=== PATIENT | male | born 1965 | race Two or more races ===

== ENCOUNTER 2024-05-05 15:22 | Inpatient (IN) | payer MEDICAID, SELFPAY ==
[2024-05-05 15:22] VITALS: PULSE 60
--- NOTE | 2024-05-05 15:23 | PC.NURSE ---
pt brought in by ems from [facility] for altered mental status. per ems pt was seen by staff to have seizure like activity and fall to floor. pt then became unresponsive. medical staff from nursing home responded and began assisting ventilations. pt had pulse but was gcs of 3. pt received 1mg narcan in route with no response. pt was being bagged on arrival with gcs of 3. rt at bedside. dr smith at bedside
[2024-05-05 15:26] VITALS: BP 176/87; PULSE 52; RESP 18; O2SAT 100
[2024-05-05] MEDS: NALOXONE INJ 0.4 MG/ML VIAL 1 MG IV (15:31)
--- NOTE | 2024-05-05 15:33 | PC.NURSE ---
pt began responding more at this time. pt talking but is not speaking clearly. pt is breathing on his own at this time. dr smith assessing pt
[2024-05-05 15:41] VITALS: BP 146/83; PULSE 62; RESP 20; O2SAT 100
--- NOTE | 2024-05-05 15:46 | XR_ITS ---
Examination: CT maxillofacial, without intravenous contrast. 2-D sagittal reconstructions. 3-D reconstructions. Date and time of exam:May 05, 2024 1608 hrs. Indications: Patient fell today with injury to the face, facial pain CTDI: vol (mGy):18.7 DLP: (mGycm):334 Technique: Multiple axial images of maxillofacial region, 3.0 mm slice thickness. 2-D sagittal and coronal reconstructions. 3-D reconstructions. Low dose protocols were performed. One or more of the following dose reduction techniques were used; automated exposure control, adjustment of the mA and/or KV according to patient size, use of iterative reconstruction technique. Findings: Frontal bone frontal sinuses intact No nasal bone fracture Orbital rims intact No depression zygomatic arches Pterygoid plates maxilla intact No mandible fracture Impression: No acute facial fracture No opaque foreign body.
--- NOTE | 2024-05-05 15:46 | EKG_ITS ---
[facility] Test Date: 2024-05-05 Pat Name: RELL RUSSO Department: Room: - Gender: Male Refuse Laborer: : 1965 Requested By: Willie Gunn Order Number: [id number] Reading MD: Willie Gunn Measurements Intervals Ideal Rate: 55 P: 58 MD: 161 QRS: -13 QRSD: 91 T: 53 QT: 414 QTc: 398 Interpretive Statements SINUS BRADYCARDIA No previous ECG available for comparison /store/S0/[id number]/ecg/[id number].pdf
--- NOTE | 2024-05-05 15:46 | XR_ITS ---
Examination: CT lumbar spine, without contrast. 2-D sagittal reconstructions. 2-D coronal reconstructions. 3-D reconstructions. Date and time of exam:May 05, 2024 1612 hrs. Indications: Patient fell today with injury to lower back, lower back pain CTDI: vol (mGy):37.6 DLP: (mGycm):1036 Technique: Multiple 1.25 mm axial sections of the lumbar spine without intravenous contrast have been obtained. 2-D sagittal and coronal reconstructions have been obtained. 3-D reconstructions have been obtained. Low dose protocols were performed. One or more of the following dose reduction techniques were used; automated exposure control, adjustment of the mA and/or KV according to patient size, use of iterative reconstruction technique. Findings: Adequate alignment lumbar vertebral bodies on the lateral view No lumbar vertebral body compression fracture Lumbar pedicles laminated transverse and posterior spinous processes intact L5-S1 3 mm central lumbar disc bulge L4-L5 no disc protrusion L3-L4 3 mm central lumbar disc bulge Cholelithiasis Impression: No acute lumbar fracture
--- NOTE | 2024-05-05 15:46 | XR_ITS ---
Examination: CT brain head without contrast. 2-D sagittal coronal reconstructions Date and time of exam: May 05, 2024 1408 hrs. Indications: Altered mental status today with loss of consciousness episode followed by headache CTDI: vol (mGy):52.3 DLP: (mGycm):1051 Technique: Multiple CT axial sections of the brain have been obtained, 5 mm slice thickness. Contrast has not been administered. 2-D sagittal, coronal reconstructions have been obtained Low dose protocols were performed. One or more of the following dose reduction techniques were used; automated exposure control, adjustment of the mA and/or KV according to patient size, use of iterative reconstruction technique. Findings: No significant ventricular enlargement. Intra-axial or extra-axial hemorrhage density is not seen. No mass effect or midline shift Basal cisterns are not remarkable. Fourth ventricle is midline. Cranial vault intact. Impression: Negative for acute hemorrhage, mass effect or midline shift
--- NOTE | 2024-05-05 15:46 | XR_ITS ---
Examination: CT cervical spine without contrast 2-D sagittal reconstructions 2-D coronal reconstructions 3-D reconstructions. Exam date and time:May 05, 2024 1608 hrs. Indications: Patient fell today with injury to the neck, neck pain CTDI:vol (mGy) 13.4 DLP: (mGycm) 268 Technique: Multiple 2 mm axial sections of the cervical spine have been obtained. The coronal and sagittal reconstructions have been obtained. 3-D reconstructions have been obtained. Low dose protocols were performed. One or more of the following dose reduction techniques were used; automated exposure control, adjustment of the mA and/or KV according to patient size, use of iterative reconstruction technique. Findings: Axial sections demonstrate intact base of the skull. C1 exhibit satisfactory relationship to the odontoid. No acute cervical vertebral body fracture seen. Alignment posterior spinous processes satisfactory. Impression: No acute cervical fracture.
[2024-05-05 16:00] VITALS: BMI 21.5
--- NOTE | 2024-05-05 16:04 | PC.NURSE ---
pt to ct
[2024-05-05 16:13] LABS: Basophils % (Auto) 0 % (0-2.5); Eosinophils # (Auto) 0.1 Thou/mm3 (0.0-0.5); Eosinophils % (Auto) 1 % (0-10); Hematocrit 43.9 % (41.0-53.0); Hemoglobin 14.5 g/dL (13.5-16.0); Immature Granulocytes % (Auto) 0 % (0-0); Immature Granulocytes Auto 0.02 Thou/mm3 (0.00-0.00); Lymphocytes # (Auto) 1.8 Thou/mm3 (1.0-4.8); Lymphocytes % (Auto) 19 % (10-50); Mean Corpuscular Hemoglobin 28.5 pg (25.0-35.0); Mean Corpuscular Volume 86 fL (80-100); Monocytes # (Auto) 0.6 Thou/mm3 (0.0-0.8); Monocytes % (Auto) 6 % (0-12); Neutrophils # (Auto) 6.7 Thou/mm3 (1.8-7.7); Neutrophils % (Auto) 73 % (37-80); Nucleated Red Blood Cell % 0 /100 WBC (0); Platelet Count 263 Thou/mm3 (140-440); RDW Standard Deviation 39.4 fL (35.1-43.9); Red Blood Count 5.09 Miln/mm3 (4.50-5.90); White Blood Count 9.2 Thou/mm3 (3.8-10.6)
--- NOTE | 2024-05-05 16:14 | PC.NURSE ---
pt taken to CT.
[2024-05-05 16:17] LABS: Amphetamine/Methamp Scrn,U Negative (Negative); Barbiturate Screen,Urine Negative (Negative); Benzodiazepines Screen,Urine Negative (Negative); Benzoylecgonine Screen, Ur Negative (Negative); Fentanyl Screen,Urine Negative (Negative); Opiate Screen,Urine Negative (Negative); THC Screen,Urine Negative (Negative)
[2024-05-05] MEDS: SODIUM CHLORIDE 0.9% 1000 ML 1,000 ML 500 ML IV (16:36)
[2024-05-05 16:42] LABS: Alanine Aminotransferase 8 U/L (10-49); Albumin, Serum 4.2 gm/dL (3.5-5.0); Albumin/Globulin Ratio 1.8 (1.2-2.2); Alcohol, Blood Medical < 10.0 mg/dL (0-10.0); Alkaline Phosphatase 110 U/L (46-116); Anion Gap 7 (7-16); Aspartate Amino Transferase < 10 U/L (0-34); BUN/Creatinine Ratio 14 Ratio (12-20); Bilirubin,Total 0.2 mg/dL (0.3-1.2); Blood Urea Nitrogen 11 mg/dL (9-23); Calcium 9.8 mg/dL (8.3-10.6); Calcium (Corrected) 9.8 mg/dL (8.5-10.1); Carbon Dioxide 29.4 mMol/L (20.0-31.0); Chloride 100 mMol/L (98-107); Creatinine (Component) 0.8 mg/dL (0.6-1.3); Estimated Creatinine Clearance 94.3 mL/min (>60); Globulin 2.4 gm/dL (2.3-3.5); Glucose 127 mg/dL (74-106); Osmolality,Calculated 273 (275-295); Potassium 3.9 mMol/L (3.4-5.1); Sodium 136 mMol/L (136-145); Total Protein 6.6 gm/dL (5.7-8.2); Troponin I < 0.020 ng/mL (0.0-0.045); eGFR > 60 See Note
--- NOTE | 2024-05-05 17:00 | PC.NURSE ---
call from [facility] with [facility], per [facility] pt sent over for being unresponsive and apneic. [facility] worker witnessed pt pass out through small window so unknown if any head trauma. pt was found laying on the ground saying get the nurse. when [facility] arrived pt started having seizure like activity, convulsing and making gaging sounds. [facility] pts O2 sats were as low as 77. BS was 103. OPA and 18g IV was placed.
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
[2024-05-05 18:28] VITALS: BP 167/82; PULSE 50; RESP 18; TEMP 37; O2SAT 100
[2024-05-05 18:43] LABS: Creatine Kinase 32 U/L (34-171)
[2024-05-05 19:45] VITALS: BP 152/85; PULSE 50; RESP 16; O2SAT 100
[2024-05-05] MEDS: levETIRAcetam INJ 100 MG/ML VIAL 5ML 1000 MG IVP (20:01)
[2024-05-05 20:20] VITALS: BMI 23.5
[2024-05-05] MEDS: HEPARIN SOD INJ 5000 UNIT/ML VIAL SC (21:24)
--- NOTE | 2024-05-05 21:24 | PD.VCONSULT1 ---
Telemedicine visit statement This visit was conducted with the use of interactive audio and video telecommunications system that permits real time communication between the patient and the provider. Patient's verbal consent for virtual visit was obtained on 05/05/24 at 2124. Meds Home Medications and Allergies Home Medications ?Medication ?Instructions ?Recorded ?Confirmed ?Type No Known Home Medications 05/05/24 05/05/24 History Allergies Allergy/AdvReac Type Severity Reaction Status Date / Time No Known Allergies Allergy Verified 05/05/24 15:59 Virtual exam Vital Signs Temp Pulse Resp BP Pulse Ox O2 Del Method 98.6 F 50 L 16 152/85 H 100 Room Air 05/05/24 18:28 05/05/24 19:45 05/05/24 19:45 05/05/24 19:45 05/05/24 19:45 05/05/24 19:45 Results Labs 05/05/24 16:00 05/05/24 16:00 Labs: Short CBC 05/05/24 Range/Units 16:00 WBC 9.2 (3.8-10.6) Thou/mm3 Hgb 14.5 (13.5-16.0) g/dL Hct 43.9 (41.0-53.0) % Plt Count 263 (140-440) Thou/mm3 BMP 05/05/24 16:00 Sodium 136 Potassium 3.9 Chloride 100 Carbon Dioxide 29.4 BUN 11 Creatinine 0.8 Glucose 127 H Calcium 9.8 Cardiac Enzymes 05/05/24 Range/Units 16:00 Total Creatine Kinase 32 L (34-171) U/L Troponin I < 0.020 (0.0-0.045) ng/mL Liver Function 05/05/24 Range/Units 16:00 Total Bilirubin 0.2 L (0.3-1.2) mg/dL AST < 10 (0-34) U/L ALT 8 L (10-49) U/L Alkaline Phosphatase 110 (46-116) U/L Albumin 4.2 (3.5-5.0) gm/dL
--- NOTE | 2024-05-05 22:33 | PC.NURSE ---
called Dr. Sanabria regarding patient's down HR to 42. Patient is asymptomatic, no new orders received.
[2024-05-06] VITALS (11 sets, daily range): BP systolic 118–152; BP diastolic 69–81; PULSE 45–56; RESP 13–23; TEMP 36.1–36.6; O2SAT 94–100
[2024-05-06 06:19] LABS: Basophils % (Auto) 0 % (0-2.5); Eosinophils # (Auto) 0.1 Thou/mm3 (0.0-0.5); Eosinophils % (Auto) 1 % (0-10); Hematocrit 40.4 % (41.0-53.0); Hemoglobin 12.9 g/dL (13.5-16.0); Immature Granulocytes % (Auto) 0 % (0-0); Immature Granulocytes Auto 0.02 Thou/mm3 (0.00-0.00); Lymphocytes # (Auto) 1.2 Thou/mm3 (1.0-4.8); Lymphocytes % (Auto) 19 % (10-50); Mean Corpuscular HGB Conc 31.9 g/dl (31.0-37.0); Mean Corpuscular Hemoglobin 28.6 pg (25.0-35.0); Mean Corpuscular Volume 90 fL (80-100); Monocytes # (Auto) 0.5 Thou/mm3 (0.0-0.8); Monocytes % (Auto) 7 % (0-12); Neutrophils # (Auto) 4.7 Thou/mm3 (1.8-7.7); Neutrophils % (Auto) 72 % (37-80); Nucleated Red Blood Cell % 0 /100 WBC (0); Platelet Count 259 Thou/mm3 (140-440); Red Blood Count 4.51 Miln/mm3 (4.50-5.90); White Blood Count 6.4 Thou/mm3 (3.8-10.6)
[2024-05-06 06:25] LABS: Anion Gap 6 (7-16); BUN/Creatinine Ratio 14 Ratio (12-20); Blood Urea Nitrogen 11 mg/dL (9-23); Calcium 8.9 mg/dL (8.3-10.6); Carbon Dioxide 28.1 mMol/L (20.0-31.0); Chloride 104 mMol/L (98-107); Creatinine (Component) 0.8 mg/dL (0.6-1.3); Estimated Creatinine Clearance 100.6 mL/min (>60); Glucose 100 mg/dL (74-106); Magnesium 1.9 mg/dL (1.6-2.6); Osmolality,Calculated 275 (275-295); Potassium 3.8 mMol/L (3.4-5.1); Sodium 138 mMol/L (136-145); Thyroid Stimulating Hormone 1.33 uIU/mL (0.55-4.78); eGFR > 60 See Note
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
[2024-05-06] MEDS: HEPARIN SOD INJ 5000 UNIT/ML VIAL SC ×2 (09:16→20:26)
--- NOTE | 2024-05-06 13:51 | PC.SS ---
Rounding: Pending neuro and cardio reccs
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
[2024-05-06] MEDS: ACETAMINOPHEN 325 MG TABLET 650 MG PO (20:31)
[2024-05-07] VITALS (9 sets, daily range): BP systolic 103–141; BP diastolic 63–77; PULSE 43–61; RESP 14–18; TEMP 36.1–36.9; O2SAT 97–99; BMI 23.6
--- NOTE | 2024-05-07 02:56 | EKG_ITS ---
[facility] Test Date: 2024-05-07 Pat Name: RELL RUSSO [facility] Gender: Male Living Coach: LEONEL : 1965 Requested By: Neo Sanabria Order Number: [id number] Reading MD: Neo Sanabria Measurements Intervals [place] Rate: 48 P: 56 MN: 157 QRS: -14 QRSD: 103 T: 71 QT: 441 QTc: 395 Interpretive Statements SINUS BRADYCARDIA Compared to ECG 05/05/2024 16:43:52 No significant changes /store/S0/[id number]/[id number].pdf
[2024-05-07] MEDS: LORazepam 2 MG/ML VIAL 1 MG IVP (03:10)
--- NOTE | 2024-05-07 03:13 | PC.RT ---
Responded to SPA SUPERVISOR pt on RA spo2 98% RR19, hr 48, EKG done RT dc at 03:12.
[2024-05-07 03:14] LABS: Basophils % (Auto) 0 % (0-2.5); Eosinophils # (Auto) 0.1 Thou/mm3 (0.0-0.5); Eosinophils % (Auto) 2 % (0-10); Hematocrit 43.2 % (41.0-53.0); Hemoglobin 13.8 g/dL (13.5-16.0); Immature Granulocytes % (Auto) 0 % (0-0); Immature Granulocytes Auto 0.02 Thou/mm3 (0.00-0.00); Lymphocytes # (Auto) 1.5 Thou/mm3 (1.0-4.8); Lymphocytes % (Auto) 20 % (10-50); Mean Corpuscular HGB Conc 31.9 g/dl (31.0-37.0); Mean Corpuscular Hemoglobin 28.4 pg (25.0-35.0); Mean Corpuscular Volume 89 fL (80-100); Monocytes # (Auto) 0.5 Thou/mm3 (0.0-0.8); Monocytes % (Auto) 7 % (0-12); Neutrophils # (Auto) 5.2 Thou/mm3 (1.8-7.7); Neutrophils % (Auto) 71 % (37-80); Nucleated Red Blood Cell % 0 /100 WBC (0); Platelet Count 338 Thou/mm3 (140-440); RDW Standard Deviation 40.7 fL (35.1-43.9); Red Blood Count 4.86 Miln/mm3 (4.50-5.90); White Blood Count 7.4 Thou/mm3 (3.8-10.6)
--- NOTE | 2024-05-07 03:28 | PD.RESEVENT ---
Documentation for date of: 05/07/24 Event Note Event Note: Rapid response was called around 2:45AM for possible seizure episode while in the hypercapnic phase of EEG. Patient was reported to be seen snoring, gagging, and vomiting, and less responsive. Patient's BP at the time was 187/79, with HR of 49, O2 sat 98% on RA. Patient was arousable to name and sternal rub, and able to open his eyes, and reactive to light. Patient was complaining of chest pain, and very tender to touch. BP later improved to 153/84, with HR of 51, and FS 106. Repeat EKG was taken, and showed no ST-T changes from last EKG taken in the ED. No signs of incontinence or tongue biting noticed/witnessed. Patient's last antiepileptic was given in the ED, 1g Keppra on 05/05/24. D/t low HR, will give Ativan 1mg x 1, and continue to monitor for any seizure like activity. In addition, will order CK along with morning labs. Patient's care and plan discussed with my attending, Dr. Wagner. Sandra Barrios, PGY-2
[2024-05-07 03:38] LABS: Alanine Aminotransferase 9 U/L (10-49); Albumin, Serum 3.9 gm/dL (3.5-5.0); Albumin/Globulin Ratio 1.6 (1.2-2.2); Alkaline Phosphatase 106 U/L (46-116); Anion Gap 8 (7-16); Aspartate Amino Transferase 13 U/L (0-34); BUN/Creatinine Ratio 15 Ratio (12-20); Bilirubin,Total 0.2 mg/dL (0.3-1.2); Blood Urea Nitrogen 12 mg/dL (9-23); Calcium 9.8 mg/dL (8.3-10.6); Calcium (Corrected) 9.9 mg/dL (8.5-10.1); Carbon Dioxide 27.9 mMol/L (20.0-31.0); Chloride 102 mMol/L (98-107); Creatine Kinase 47 U/L (34-171); Creatinine (Component) 0.8 mg/dL (0.6-1.3); Estimated Creatinine Clearance 100.6 mL/min (>60); Globulin 2.4 gm/dL (2.3-3.5); Glucose 100 mg/dL (74-106); Osmolality,Calculated 275 (275-295); Phosphorous 4.4 mg/dL (2.4-5.1); Potassium 3.9 mMol/L (3.4-5.1); Sodium 138 mMol/L (136-145); Total Protein 6.3 gm/dL (5.7-8.2); eGFR > 60 See Note
--- NOTE | 2024-05-07 03:45 | PC.NURSE ---
Accessed pt's chart/MAR to give ativan to pt helping main RN
--- NOTE | 2024-05-07 04:55 | RESP.EEG ---
EEG captured and ready to be read
[2024-05-07] MEDS: HEPARIN SOD INJ 5000 UNIT/ML VIAL SC ×2 (09:15→21:33)
--- NOTE | 2024-05-07 09:31 | PC.SS ---
SS met with patient Laz Abernathy is a 58 Year old male admitted for New onset Seizures. SS met with patient at bedside. Patient is from [facility]. Patient is able to ambulate and able to complete all ADL's. Patient does not utilize any source of DME to assist with ambulation. Patient reports he does not have any decision makers and reports he is his own decision maker. At time of discharge patient will return back to [facility], officer at bedside will transport patient.
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
[2024-05-07] MEDS: levETIRAcetam 250 MG TABLET 1000 MG PO ×2 (12:01→21:33)
--- NOTE | 2024-05-07 23:22 | ESPR_ITS ---
Documentation for date of: 05/07/24 Subjective Subjective Interval history: Patient is in [facility], no seizures in the last 12 hours. No complaints or side effects on Keppra Exam - Neurology Vital Signs Temp Pulse Resp BP Pulse Ox O2 Del Method 98 F 57 L 18 136/76 H 97 CPAP 05/07/24 20:00 05/07/24 20:00 05/07/24 20:00 05/07/24 20:00 05/07/24 20:00 05/07/24 20:00 Narrative Exam GENERAL APPEARANCE: Well hydrated, well-nourished in no acute distress. HEENT: Normocephalic, atraumatic, extraocular movements intact. Pupils: Equal reacting to light NECK: Supple, no JVD or bruits. CARDIOVASULAR: Heart: S1, S2 heard, regular without S3-S4 or murmur no rubs or gallops. LUNGS/CHEST: Clear to auscultation bilaterally. No rails, rhonchi, or wheezing. Normal inspection. ABDOMEN: Soft, nontender, with normal bowel sounds. No pulsatile masses. No rebound, rigidity, or guarding. Normal inspection and palpation. EXTREMITIES: Normal inspection and palpation. No edema, clubbing or cyanosis. SKIN: Warm and dry without rashes. Normal inspection. MUSCULOSKELETAL: No cervical, thoracic, lumbar or midline bony tenderness. Normal inspection. NEURO: Alert, awake and oriented x3. Cranial nerves: II through XII grossly intact. Speech and language: Normal with no dysarthria or dysphasia. Motor system: Tone and bulk: Normal: Strength: 5 out of 5 in all 4 extremities; No pronator drift noted. Deep tendon reflexes: 2+ bilaterally symmetrical. Plantar reflex: Downgoing bilaterally. Sensory system: Intact to all modalities of sensation bilaterally. Coordination: Intact to [id number]-jzhb-[id number] and [id number] test bilaterally. No ataxia, no dysmetria, or dysdiadochokinesia noted. No intention tremors noted. Gait: Not tested. No signs of meningeal irritation noted. PSYCHIATRIC: Normal mood and affect. Objective Labs 05/08/24 04:50 05/08/24 04:50 Labs: Laboratory Results - last 24 hr 05/07/24 02:56 WBC 7.4 RBC 4.86 Hgb 13.8 Hct 43.2 MCV 89 MCH 28.4 MCHC 31.9 RDW Std Deviation 40.7 Plt Count 338 D Neut % (Auto) 71 Lymph % (Auto) 20 [place] % (Auto) 7 Eos % (Auto) 2 Baso % (Auto) 0 Neut # (Auto) 5.2 Lymph # (Auto) 1.5 [place] # (Auto) 0.5 Eos # (Auto) 0.1 Baso # (Auto) 0.0 Immature Gran # (Auto) 0.02 H Absolute Nucleated RBC 0.00 Immature Gran % 0 Nucleated RBC % 0 Sodium 138 Potassium 3.9 Chloride 102 Carbon Dioxide 27.9 Anion Gap 8 BUN 12 Creatinine 0.8 Estim Creat Clear Calc 100.6 eGFR > 60 BUN/Creatinine Ratio 15 Glucose 100 Calculated Osmolality 275 Calcium 9.8 Corrected Calcium 9.9 Phosphorus 4.4 Magnesium 2.0 Total Bilirubin 0.2 L AST 13 ALT 9 L Alkaline Phosphatase 106 Total Creatine Kinase 47 Total Protein 6.3 Albumin 3.9 Globulin 2.4 Albumin/Globulin Ratio 1.6 Assessment & Plan Assessment and plan (1) New onset seizure: Status: Acute Assessment and plan: Reportedly had witnessed a seizure in the facility and in the hospital after admission this morning. Was given Ativan 1 mg and loaded with Keppra 1000 mg and continued on 1000 mg twice a day. EEG showed normal study but it does not rule out the diagnosis of seizures. Continue with the Keppra. Would need video recording of the episode if possible to characterize the seizure and the repeat EEG to decide about the duration of AED therapy as an outpatient. Follow-up with MRI brain with and without contrast as it becomes available..
[2024-05-08] VITALS: BP 111/61; PULSE 52; PULSE 56; RESP 17; TEMP 36.4; O2SAT 94
--- NOTE | 2024-05-08 | XR_ITS ---
Examination: MRI of brain without intravenous contrast. MRI brain with intravenous contrast. Date and time of exam:May 08, 2024 1719 hrs. Indications: First time seizure May 05, 2024 Technique: Multiple axial and sagittal images of the brain to been obtained. Siemens high-resolution 1.52 Nina short bore scanner utilized. Sagittal sections, T1 weighted images, TR 500, TE 14, are performed. Axial sections proton-density and T2-weighted images have been obtained. Inversion recovery axial images, TR 9260, TE 111, TR 2500. Diffusion weighted images, axial sections, TR 4800, TE 128, B value 1000. Axial sections, ADC map, TR 4800, TE 128. Axial and coronal images were also obtained post 14 cc gadolinium administered intravenously. Findings:: Enlargement of the sella turcica is not present. The optic chiasm and infundibular stalk are not remarkable. There is no localized enlargement of the medulla or jazmine. Fourth ventricle and cerebellar tonsils appear normal in position. No subacute area of hemorrhage density is seen. Fourth ventricle is midline. Mass in the cerebellopontine angle region is not evident. 7th and 8th nerve complexes exhibit symmetry Globes are symmetrical Orbital musculature including medial lateral rectus muscles do not exhibit abnormality Increased white matter signal is evident, punctate foci increased signal in the bilateral frontal white matter, for instance FLAIR images 21 and 22 and left temporal white matter right occipital white matter FLAIR image 16 Effacement of the cortical sulcal markings is not identified. Mass effect upon the ventricular system is not identified. Diffusion-weighted images demonstrate no focus of restricted diffusion Contrast images demonstrate no abnormal enhancement Impression: Punctate foci increased signal in the cerebral white matter, demyelinating disease pattern
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
[2024-05-08] MEDS: HALOPERIDOL LACT INJ 5 MG/ML VIAL IM (01:14)
[2024-05-08] MEDS: DiphenhydrAMINE INJ 50 MG/ML VIAL 25 MG IM (01:14)
[2024-05-08 04:00] VITALS: BP 120/66; PULSE 53; PULSE 60; RESP 13; TEMP 36.2; O2SAT 97
[2024-05-08 06:09] LABS: Basophils % (Auto) 0 % (0-2.5); Eosinophils # (Auto) 0.1 Thou/mm3 (0.0-0.5); Eosinophils % (Auto) 2 % (0-10); Hematocrit 45.8 % (41.0-53.0); Hemoglobin 14.9 g/dL (13.5-16.0); Immature Granulocytes % (Auto) 0 % (0-0); Immature Granulocytes Auto 0.02 Thou/mm3 (0.00-0.00); Lymphocytes # (Auto) 1.5 Thou/mm3 (1.0-4.8); Lymphocytes % (Auto) 20 % (10-50); Mean Corpuscular HGB Conc 32.5 g/dl (31.0-37.0); Mean Corpuscular Hemoglobin 28.3 pg (25.0-35.0); Mean Corpuscular Volume 87 fL (80-100); Monocytes # (Auto) 0.5 Thou/mm3 (0.0-0.8); Monocytes % (Auto) 7 % (0-12); Neutrophils # (Auto) 5.3 Thou/mm3 (1.8-7.7); Neutrophils % (Auto) 71 % (37-80); Nucleated Red Blood Cell % 0 /100 WBC (0); Platelet Count 271 Thou/mm3 (140-440); RDW Standard Deviation 39.6 fL (35.1-43.9); Red Blood Count 5.27 Miln/mm3 (4.50-5.90); White Blood Count 7.5 Thou/mm3 (3.8-10.6)
[2024-05-08 06:32] LABS: Anion Gap 7 (7-16); BUN/Creatinine Ratio 16 Ratio (12-20); Blood Urea Nitrogen 14 mg/dL (9-23); Calcium 9.5 mg/dL (8.3-10.6); Carbon Dioxide 27.1 mMol/L (20.0-31.0); Chloride 101 mMol/L (98-107); Creatinine (Component) 0.9 mg/dL (0.6-1.3); Estimated Creatinine Clearance 86.6 mL/min (>60); Glucose 89 mg/dL (74-106); Magnesium 2.1 mg/dL (1.6-2.6); Osmolality,Calculated 269 (275-295); Sodium 135 mMol/L (136-145); eGFR > 60 See Note
[2024-05-08 08:00] VITALS: BP 100/73; PULSE 53; PULSE 54; RESP 15; TEMP 36.2; O2SAT 96
--- NOTE | 2024-05-08 08:41 | PC.NURSE ---
Attempted to do MRI screen patient unable to answer questions regarding past surgical history, pt contradicts himself, MD Devlin notified she is currently at bedside
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
--- NOTE | 2024-05-08 08:55 | PC.SS ---
SS follow up note; Poss MRI today.
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
[2024-05-08] MEDS: levETIRAcetam 250 MG TABLET 1000 MG PO (09:44)
[2024-05-08] MEDS: HEPARIN SOD INJ 5000 UNIT/ML VIAL SC (09:46)
[2024-05-08 12:00] VITALS: PULSE 60
--- NOTE | 2024-05-08 14:03 | CHAP ---
09:30 AM Visited by spiritual care volunteer Provided prayer for Patient.
[2024-05-08 16:00] VITALS: PULSE 59
[2024-05-08 20:00] VITALS: BP 113/59; PULSE 58; PULSE 59; RESP 18; TEMP 36.4; O2SAT 95
--- NOTE | 2024-05-08 23:57 | PD.VPROG1 ---
Telemedicine visit statement This visit was conducted with the use of interactive audio and video telecommunications system that permits real time communication between the patient and the provider. Patient's verbal consent for virtual visit was obtained on 05/08/24 at 2357. Documentation for date of: 05/08/24 Virtual exam Vital Signs Temp Pulse Resp BP Pulse Ox O2 Del Method 97.6 F 58 L 18 113/59 L 95 Room Air 05/08/24 20:00 05/08/24 20:00 05/08/24 20:00 05/08/24 20:00 05/08/24 20:00 05/08/24 20:00 Objective Labs 05/08/24 04:50 05/08/24 04:50 Labs: Laboratory Results - last 24 hr 05/08/24 04:50 WBC 7.5 RBC 5.27 Hgb 14.9 Hct 45.8 MCV 87 MCH 28.3 MCHC 32.5 RDW Std Deviation 39.6 Plt Count 271 D Neut % (Auto) 71 Lymph % (Auto) 20 [place] % (Auto) 7 Eos % (Auto) 2 Baso % (Auto) 0 Neut # (Auto) 5.3 Lymph # (Auto) 1.5 [place] # (Auto) 0.5 Eos # (Auto) 0.1 Baso # (Auto) 0.0 Immature Gran # (Auto) 0.02 H Absolute Nucleated RBC 0.00 Immature Gran % 0 Nucleated RBC % 0 Sodium 135 L Potassium 4.0 Chloride 101 Carbon Dioxide 27.1 Anion Gap 7 BUN 14 Creatinine 0.9 Estim Creat Clear Calc 86.6 eGFR > 60 BUN/Creatinine Ratio 16 Glucose 89 Calculated Osmolality 269 L Calcium 9.5 Magnesium 2.1
[2024-05-09] VITALS: BP 108/65; PULSE 55; PULSE 57; RESP 18; TEMP 36.4; O2SAT 97
[2024-05-09 04:00] VITALS: BP 126/61; PULSE 60; RESP 18; TEMP 36.4; O2SAT 93
[2024-05-09 05:38] LABS: Basophils % (Auto) 0 % (0-2.5); Eosinophils # (Auto) 0.2 Thou/mm3 (0.0-0.5); Eosinophils % (Auto) 2 % (0-10); Hematocrit 43.9 % (41.0-53.0); Hemoglobin 14.4 g/dL (13.5-16.0); Immature Granulocytes % (Auto) 0 % (0-0); Immature Granulocytes Auto 0.03 Thou/mm3 (0.00-0.00); Lymphocytes # (Auto) 1.6 Thou/mm3 (1.0-4.8); Lymphocytes % (Auto) 18 % (10-50); Mean Corpuscular HGB Conc 32.8 g/dl (31.0-37.0); Mean Corpuscular Hemoglobin 28.3 pg (25.0-35.0); Mean Corpuscular Volume 86 fL (80-100); Monocytes # (Auto) 0.6 Thou/mm3 (0.0-0.8); Monocytes % (Auto) 7 % (0-12); Neutrophils # (Auto) 6.3 Thou/mm3 (1.8-7.7); Neutrophils % (Auto) 73 % (37-80); Nucleated Red Blood Cell % 0 /100 WBC (0); Platelet Count 270 Thou/mm3 (140-440); RDW Standard Deviation 39.1 fL (35.1-43.9); Red Blood Count 5.08 Miln/mm3 (4.50-5.90); White Blood Count 8.7 Thou/mm3 (3.8-10.6)
[2024-05-09 06:13] LABS: Anion Gap 8 (7-16); BUN/Creatinine Ratio 18 Ratio (12-20); Blood Urea Nitrogen 18 mg/dL (9-23); Calcium 9.4 mg/dL (8.3-10.6); Carbon Dioxide 26.9 mMol/L (20.0-31.0); Chloride 98 mMol/L (98-107); Estimated Creatinine Clearance 77.9 mL/min (>60); Glucose 179 mg/dL (74-106); Osmolality,Calculated 272 (275-295); Sodium 133 mMol/L (136-145); eGFR > 60 See Note
[2024-05-09 07:54] VITALS: BP 121/64; PULSE 65; RESP 16; TEMP 36.8; O2SAT 96
[2024-05-09 08:00] VITALS: PULSE 65
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
[2024-05-09 12:00] VITALS: BP 116/60; PULSE 55; RESP 17; TEMP 36.7; O2SAT 97
== END 2024-05-09 12:55 | DRG 53 ==
LOC: SERX 18:54 → SERHOLD 18:56 → S3NX 20:23
PROVIDERS: Student in an Organized Health Care Education/Training Program; Admitting Provider Student in an Organized Health Care Education/Training Program; Emergency Provider Emergency Medicine; Visit Provider Internal Medicine
DX: R56.9 Unspecified convulsions (principal); R00.1 Bradycardia, unspecified; F15.11 Other stimulant abuse, in remission; Z79.899 Other long term (current) drug therapy
CPT/HCPCS: 36415; 70450; 70486; 70553; 72125; 72131; 80048; 80053; 80307; 80320; 82550; 83735; 84100; 84443; 84484; 85025; 87081; 93005; 93225; 95816; 96361; 96374; 97162; 99291; A9579; J1200; J1630; J1643; J1953; J2060; J2310; J7030; A9270; G0480; J1644